=== PATIENT | female | born 1975 | race Caucasian/White ===

== ENCOUNTER 2020-08-08 13:25 | Outpatient (RCR) | payer MEDICARE, MEDICAID, SELFPAY ==
[2014-11-13 10:02] VITALS: BMI 30.1
== END 2020-08-08 23:59 ==
LOC: IMMUN 13:25
PROVIDERS: PCP Family Medicine; Visit Provider Family Medicine
DX: Z23 Encounter for immunization (principal)
CPT/HCPCS: 0011A; 0012A; 91301